=== PATIENT | female | born 2000 | race Caucasian/White ===

== ENCOUNTER 2020-04-09 10:46 | Emergency (ER) | payer SELFPAY ==
--- NOTE | 2020-04-09 10:56 | ED.FEMALEGU ---
HPI - Female Genitourinary General Chief complaint: Urogenital-Female Stated complaint: UTI Time Seen by Provider: 04/09/20 11:06 Source: patient and RN notes reviewed Mode of arrival: ambulatory Limitations: no limitations History of Present Illness HPI Narrative: This is a 19 years old female presents to the office for an evaluation of possible UTI. Onset 2 days ago with urinary frequency, urgency and blood tinged when she wiped. Denies history of UTI in the past. She is sexually active with one partner, denies concern for STD. No treatment prior to arrival. Denies chance of . Related Data Allergies Allergy/AdvReac Type Severity Reaction Status Date / Time No Known Allergies Allergy Unverified 03/18/14 21:45 Review of Systems Review of Systems: Narrative: CONSTITUTIONAL: Denies fever, chills. CARDIOVASCULAR: Denies chest pain, palpitation RESPIRATORY: Denies dyspnea, wheezing, cough GASTROINTESTINAL: Denies abdominal pain, nausea, vomiting GENITOURINARY: Denies vaginal discharge SKIN: Denies rash MUSCULOSKELETAL: Denies acute back pain NEUROLOGIC: Denies lightheaded All other systems reviewed are negative, except as documented in HPI. PMFSH Comments At time of signature, I agree with nursing past medical, surgical, social and family history. There is no relevant family history pertinent to the presenting complaint. Exam Narrative: Exam Narrative: GENERAL: This is a well-nourished, well-developed patient, in no apparent distress. CARDIOVASCULAR: Regular rate and rhythm without murmurs, gallops, or rubs. RESPIRATORY: Clear to auscultation. Breath sounds equal bilaterally. No wheezes, rales, or rhonchi. GASTROINTESTINAL: Abdomen soft, non-tender, nondistended. Bowel sounds are active. No hepato-splenomegaly, or palpable masses. No guarding. No CVA tenderness. SKIN: warm, intact with no suspicious lesions or rash, good texture and turgor. NEURO: awake, alert, and oriented to person, place and time. There were no obvious focal neurologic abnormalities. Steady gait Hawk Coma Scale Eye Opening: Spontaneous 4 Hawk Coma Scale Motor: Obeys Commands 6 Hawk Coma Scale Verbal: Oriented 5 Course Vital Signs Vital signs: Vital Signs Temperature 98.6 F 04/09/20 11:08 Pulse Rate 79 04/09/20 11:08 Respiratory Rate 16 04/09/20 11:08 Blood Pressure 120/72 04/09/20 11:08 Pulse Oximetry 96 04/09/20 11:08 Temperature 98.6 F 04/09/20 11:08 Pulse Rate 79 04/09/20 11:08 Respiratory Rate 16 04/09/20 11:08 Blood Pressure 120/72 04/09/20 11:08 Pulse Oximetry 96 04/09/20 11:08 MDM - Female Genitourinary MDM Narrative Medical decision making narrative: Discharge instructions reviewed with patient, as well as provided in writing per nursing staff. The instructions also include specific and strict return/GO TO THE ER as well as f/u information. All questions have been answered, and the patient deny any further questions with discharge and discharge plan. Differential Diagnosis Differential diagnosis: Likely urinary tract infection, cervicitis, vaginitis and cystitis Lab Data Attestation: I reviewed the patient's lab results. Labs: Urine Glucose Negative Reference Range: Negative Urine Bilirubin Negative Reference Range: Negative Urine Ketone Negative Reference Range: Negative Urine Specific Addison 1.020 Reference Range:1.001-1.035 Urine Blood 1+ Reference Range: Negative * * Urine pH 8.5 Reference Range: 5.0-9.0 Urine Protein 1+ Reference Range: Negative Urine Urobilinogen 0.2 Reference Range: 0.2-1.0 Urine Nitrate Negative Reference Range: Negative Urine Leukocyte
[2020-04-09 11:08] VITALS: BP 120/72; PULSE 79; RESP 16; TEMP 37; O2SAT 96
== END 2020-04-09 11:22 | disposition home or self-care (01) ==
PROVIDERS: Emergency Provider Nurse Practitioner
DX: R35.0 Frequency of micturition (principal); R39.15 Urgency of urination
CPT/HCPCS: 81003; 87077; 87086; 87088; 87186; 99213; G0463

== ENCOUNTER 2020-08-31 14:37 | Emergency (ER) | payer SELFPAY ==
[2020-08-31 14:50] VITALS: BP 122/58; PULSE 78; RESP 16; TEMP 36.7; O2SAT 99
--- NOTE | 2020-08-31 15:20 | ED.EAR ---
HPI - Ear Problem General Chief complaint: Ear Stated complaint: bump behind ear Source: patient and RN notes reviewed Mode of arrival: ambulatory Limitations: no limitations History of Present Illness HPI Narrative: This is a 20-year-old white female that presented to the ED today with complaints of left ear pain . 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 According to patient her parents told her that she had a tumor. 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 Patient notes that when she is sleeping night and lays on her left ear her pain increases. She also showed me pictures where the left ear was red with a swollen area behind that left ear. Today she does not have that but continues to complain of pain. She will be treated for otitis media. Patient denies any ear discharge, change in hearing , SOB, CP, palpitation, extremity numbness, lightheadedness, dizziness, constipation, diarrhea, chills, or fever. MD Complaint: ear pain Related Data Allergies Allergy/AdvReac Type Severity Reaction Status Date / Time No Known Allergies Allergy Unverified 08/31/20 14:40 Review of Systems Review of Systems: All systems reviewed & are unremarkable except as noted in HPI and below (10 point system review) Exam Narrative: Exam Narrative: GENERAL: This is a well-nourished, well-developed patient, in no apparent distress. HEAD: normocephalic, atraumatic. EYES: PERRL. Sclera clear/white. Vision is grossly intact. EARS: External ears normal, auditory canals with slight edema and erythema, TMs normal without perforation. Hearing grossly intact. NOSE: External nose normal with no obvious nasal discharge, nares without redness, no rhinorrhea. THROAT: Mucous membranes moist, posterior pharynx clear. NECK: Neck supple, non-tender without lymphadenopathy, masses or thyromegaly. CARDIOVASCULAR: Regular rate and rhythm without murmurs, gallops, or rubs. RESPIRATORY: Clear to auscultation. Breath sounds equal bilaterally. No wheezes, rales, or rhonchi. GASTROINTESTINAL: Abdomen soft, non-tender, nondistended. Bowel sounds are active. No hepato-splenomegaly, or palpable masses. No guarding. SKIN: warm, intact with no suspicious lesions or rash, good texture and turgor. NEURO: awake, alert, and oriented to person, place and time. There were no obvious focal neurologic abnormalities. Steady gait EXTREMITIES: Normal range of motion. No edema. No calf tenderness. Negative Homans sign bilaterally. BACK: Nontender without deformity or crepitance. No flank tenderness. Course Vital Signs Vital signs: Vital Signs Temperature 98.0 F 08/31/20 14:50 Pulse Rate 78 08/31/20 14:50 Respiratory Rate 16 08/31/20 14:50 Blood Pressure 122/58 L 08/31/20 14:50 Pulse Oximetry 99 08/31/20 14:50 Temperature 98.0 F 08/31/20 15:26 Pulse Rate 78 08/31/20 15:26 Respiratory Rate 16 08/31/20 15:26 Blood Pressure 122/58 L 08/31/20 15:26 Pulse Oximetry 99 08/31/20 15:26 Medical Decision Making Vital Signs Vital Signs: Vital Signs Temperature 98.0 F 08/31/20 14:50 Pulse Rate 78 08/31/20 14:50 Respiratory Rate 16 08/31/20 14:50 Blood Pressure 122/58 L 08/31/20 14:50 Pulse Oximetry 99 08/31/20 14:50 Temperature 98.0 F 08/31/20 15:26 Pulse Rate 78 08/31/20 15:26 Respiratory Rate 16 08/31/20 15:26 Blood Pressure 122/58 L 08/31/20 15:26 Pulse Oximetry 99 08/31/20 15:26 Discharge Plan Discharge Clinical Impression: Otitis media Qualifiers: Otitis media type: suppurative Chronicity: acute Laterality: left Recurrence: non-recurrent Spontaneous tympanic membrane rupture: without spontaneous rupture Qualified Code(s): H66.002 - Acute suppurative otitis media without spontaneous rupture of ear drum, left ear Patient Disposition: Home, Self-Care Condition: Stable Instructions: Antibiotic Form, Amoxicillin (By mouth), Ear Infection (ED) Additional Instructions:
[2020-08-31 15:26] VITALS: BP 122/58; PULSE 78; RESP 16; TEMP 36.7; O2SAT 99
== END 2020-08-31 15:21 | disposition home or self-care (01) ==
PROVIDERS: Emergency Provider Nurse Practitioner
DX: H66.002 Acute suppurative otitis media without spontaneous rupture of ear drum, left ear (principal)
CPT/HCPCS: 99213; G0463

== ENCOUNTER 2021-06-24 20:13 | Emergency (ER) | payer SELFPAY ==
--- NOTE | ~2021-06-24 | XR_ITS ---
EXAMINATION: XR foot LT min 3V DATE: 06/24/2021 20:36 INDICATION: Left foot pain TECHNIQUE: Dorsoplantar, lateral, and 2 oblique views of the left foot were obtained. COMPARISON: None. FINDINGS: There is no fracture, dislocation, or subluxation. The bones and joint spaces are normal. T here is plantar soft tissue swelling of the foot. No radiopaque foreign body is identified. IMPRESSION: 1. Plantar soft tissue swelling of the foot without radiopaque foreign body identified. Reviewed, dictated and finalized at location A. IMPRESSION: 1. Plantar soft tissue swelling of the foot without radiopaque foreign body rahul ntified.
[2021-06-24 20:19] VITALS: BP 133/74; PULSE 97; RESP 20; TEMP 36.6; O2SAT 100
--- NOTE | 2021-06-24 22:29 | ED.WOUNDLAC ---
HPI - Wound/Laceration General Chief Complaint: Wound/Laceration Stated Complaint: Stepped on glass, wound Time Seen by Provider: 06/24/21 22:24 Source: patient Mode of arrival: ambulatory Limitations: no limitations History of Present Illness HPI narrative: 20-year-old female with no significant past medical history immunizations up-to-date complaining of left plantar foot laceration. Patient was taking out the garbage the garbage bag dropped and there was a broken vase which she stepped on in her bare feet. Patient complaining of approximately 1 cm wound in the mid medial left plantar area swelling and tenderness to the wound. No active bleeding. Tetanus up-to-date. No other injury. Patient came planes of left foot pain constant worse with ambulation or movement proved with rest. Pain located on the left medial plantar area nonradiating Onset (ago): hour(s) Related Data Allergies Allergy/AdvReac Type Severity Reaction Status Date / Time No Known Allergies Allergy Unverified 08/31/20 14:40 Review of Systems Review of Systems: CONSTITUTIONAL: no fever, no weight loss, no confusion EYES: no vision changes, no eye pain ENT: no rhinorrhea, no sore throat, no difficulty swallowing CARDIOVASCULAR: no chest pain, no leg edema, no palpitations RESPIRATORY: no cough, no shortness of breath, no hemoptysis GASTROINTESTINAL: no abdominal pain, no nausea, no vomiting, no diarrhea GENITOURINARY: no flank pain, no dysuria, no hematuria SKIN: no rash, no jaundice, one cm laceration L plantar medial foot MUSCULOSKELETAL: no back pain, L foot pain NEUROLOGIC: No headache, no dizziness, no focal weakness PSYCHIATRIC: No hallucinations, no suicidal ideation Exam Narrative: General: alert, afebrile, answering all questions appropriately Head: normocephalic, atraumatic Eyes: EOMI bilaterally, anicteric, no injection ENT: moist mucous membranes, oropharynx patent, no rhinorrhea Neck: supple, trachea midline, no JVD Chest: equal chest rise bilaterally, no chest wall trauma noted EXT: no deformity noted, moving all extremities equally Skin: warm, dry, no pallor 1cm subcutaneous laceration to L medial plantar foot, no active bleeding Neuro: alert, oriented x 3; CN 2-12 grossly intact, no dysarthria Psych: affect appropriate, though content normal Course Vital Signs Vital signs: Vital Signs Temperature 36.6 C 06/24/21 20:19 Pulse Rate 97 06/24/21 20:19 Respiratory Rate 20 06/24/21 20:19 Blood Pressure 133/74 06/24/21 20:19 Pulse Oximetry 100 06/24/21 20:19 Temperature 36.6 C 06/24/21 20:19 Pulse Rate 90 06/24/21 23:38 Respiratory Rate 18 06/24/21 23:38 Blood Pressure 159/77 H 06/24/21 23:38 Pulse Oximetry 100 06/24/21 23:38 MDM - Wound/Laceration MDM Narrative Medical decision making narrative: 20-year-old female Tdap up-to-date stepped on a garbage bag containing glass objects including a glass vase which was broken. Patient stepped down in bare feet on the [place] suffered a laceration to the left medial dorsal foot prior to arrival. Foot x-ray shows no foreign bodies. On exam patient has 1 cm subcutaneous laceration with no active bleeding to the left dorsal foot. Patient does have some foot swelling and tenderness. No other discharge from the wound. Wound was irrigated with 50% Betadine 50% saline for 15 minutes. And rinsed off. Steri-Strips were applied and the foot was wrapped for comfort. Augmentin was given for swelling and possible infection. Patient will return immediately if fever, worsening pain at site, or signs of infection including drainage or redness. Differential Diagnosis Differential diagnosis: Likely laceration and other (retained foreign body) Medical Records Attestation: I reviewed the patient's medical records. Imaging Data My impression: Left foot x-ray: No foreign body, mild soft tissue swelling at site. No free air no pockets of air. Discharge Plan Discharge Clinical Impre
[2021-06-24] MEDS: IBUPROFEN 600 MG TABLET PO (23:21)
[2021-06-24 23:38] VITALS: BP 159/77; PULSE 90; RESP 18; O2SAT 100
== END 2021-06-24 23:40 | disposition home or self-care (01) ==
LOC: ANHED 23:19
PROVIDERS: Emergency Provider Emergency Medicine; PCP Physician Assistant
DX: S91.312A Laceration without foreign body, left foot, initial encounter (principal); W25.XXXA Contact with sharp glass, initial encounter
CPT/HCPCS: 73630; 99283; A9270

== ENCOUNTER 2021-08-05 09:39 | Emergency (ER) | payer SELFPAY ==
--- NOTE | ~2021-08-05 | XR_ITS ---
EXAMINATION: XR ankle RT min 3V INDICATION: Right ankle pain TECHNIQUE: Four views of the right ankle are obtained. COMPARISON: None available FINDINGS: Bone alignment is normal. There is no fracture. Heterotopic ossification distal to the late ral malleolus has the appearance of prior injury or accessory ossicle. There is mild lateral soft tis faustino swelling of ankle. IMPRESSION: 1. No acute osseous abnormality. Reviewed, dictated and finalized at location A. R TUBE INSERTER
--- NOTE | 2021-08-05 09:44 | ED.LOWEXIN ---
HPI - Extremity Injury (Lower) General Chief Complaint: Extremity Injury, Lower Stated Complaint: Right Foot Pain Time Seen by Provider: 08/05/21 09:44 Source: patient and RN notes reviewed History of Present Illness HPI Narrative: 21-year-old female presents to the [facility] with complaints of right ankle pain. Reports that she twisted it about a month ago. Reports pain to the medial posterior aspect. No bruising or signs of infection. Full range of motion. Capillary refill under 2 seconds distal to injury. Able to flex and dorsiflex against pressure without issue Related Data Home Medications Medication Instructions Recorded Confirmed No Home Medications 08/05/21 08/05/21 Allergies Allergy/AdvReac Type Severity Reaction Status Date / Time No Known Allergies Allergy Unverified 08/05/21 09:48 Review of Systems Review of Systems: All systems reviewed & are unremarkable except as noted in HPI and below Constitutional: Constitutional: Reports no additional constitutional complaints, Denies chills and Denies fever(s) Eyes: Eyes: Reports no additional eye complaints ENT: Reports system reviewed and no additional complaints, except as documented Cardiovascular: Cardiovascular: Reports no additional cardiovascular complaints Respiratory: Respiratory: Reports no additional respiratory complaints Gastrointestinal: Gastrointestinal: Reports no additional gastrointestinal complaints Musculoskeletal: Musculoskeletal: Reports as per HPI and Reports arthralgias (rt ankle) Integumentary/Breasts: Skin/Breast: Reports system reviewed and no additional complaints, except as docu Neurologic: Reports system reviewed and no additional complaints, except as documented Psychiatric: Psychiatric: Reports no additional psychiatric complaints Allergic/Immunologic: Allergic/Immunologic: Reports no additional allergic/immunologic complaints PMFSH Past Medical History Medical History (Updated 08/05/21 @ 16:01 by Janeth Lomax) Patient denies significant medical history Surgical History Surgical History (Updated 08/05/21 @ 16:01 by Janeth Lomax) No significant past surgical history Social History Social History (Updated 08/05/21 @ 16:01 by Janeth Lomax) Gender identity (if verbalized by the patient): Female Comments At the time of my signature, I reviewed and agree with the nursing past medical, surgical, social, and family history. There is no relevant family history pertinent to the patient complaint. Exam Const: General: healthy appearing, no acute distress and alert Nutritional Appearance: well nourished and obese Orientation/consciousness: patient oriented x3 Limitations: no limitations HENMT: Head: normal to inspection Eyes: Pupils: Equal, round and reactive pupils present Neck: Neck: normal visual inspection, no lymphadenopathy and no meningeal signs Chest: Chest palpation & inspection: normal inspection of the chest Resp: Effort & Inspection: normal respiratory effort Auscultation: clear to auscultation bilaterally Cardio: Rate: regular rate Rhythm: regular rhythm : General: Yes no CVA tenderness Back/Spine/Pelvis: Back: no CVA tenderness Skin: General skin exam: normal color Rashes: no rashes Wounds: no wounds Neuro: General: patient oriented x3, moves all extremities, no meningeal signs and no focal motor deficits Speech: normal speech Gait exam (Neuro): Normal gait present Extrem: General: normal to inspection Right lower extremity: foot Details: normal capillary refill Ankle/foot/toe images: 1. tender to palpation and with walking. No swelling bruising or signs of infection noted. Full range of motion. Positive pedal pulse. Sensation intact in all 5 toes. Psych: Appearance: grossly normal and well kempt Mental Status: mental status grossly normal Affect: normal affect Attitude: cooperative Thought content: Yes Normal thought content present Course
[2021-08-05 09:47] VITALS: BP 109/73; PULSE 75; RESP 16; TEMP 36.9; O2SAT 100
[2021-08-05 09:49] VITALS: BP 109/73; PULSE 75; RESP 16; TEMP 36.9; O2SAT 100
== END 2021-08-05 10:14 | disposition home or self-care (01) ==
PROVIDERS: Emergency Provider Nurse Practitioner; PCP Physician Assistant
DX: S93.401A Sprain of unspecified ligament of right ankle, initial encounter (principal); S96.911A Strain of unspecified muscle and tendon at ankle and foot level, right foot, initial encounter; X50.9XXA Other and unspecified overexertion or strenuous movements or postures, initial encounter
CPT/HCPCS: 73610; 99213; G0463

== ENCOUNTER 2021-09-21 06:07 | Emergency (ER) | payer SELFPAY ==
--- NOTE | ~2021-09-21 | XR_ITS ---
EXAMINATION: XR chest 1V portable DATE: 09/21/2021 07:28 INDICATION: Left back pain. Cough. TECHNIQUE: A single frontal view of the chest was obtained. COMPARISON: None. FINDINGS: The chest demonstrates clear lungs without pneumonia, pleural effusion, or pneumothorax. Th e heart size is normal. IMPRESSION: 1. No acute cardiopulmonary disease. Reviewed, dictated and finalized at location A. IRING MACHINE OPERATOR
--- NOTE | ~2021-09-21 | CT_ITS ---
EXAMINATION: CT abdomen pelvis w con DATE: 09/21/2021 08:07 INDICATION: Left abdominal pain. Left back pain. TECHNIQUE: Computed tomography (CT) of the abdomen and pelvis was performed with 100 mL Omnipaque 350 intravenous contrast. Automated exposure control and iterative reconstruction technique were employe d. The dose-length product was 1533.14 mGy-cm. COMPARISON: None. FINDINGS: The visualized portions of the lung bases demonstrate minimal atelectasis. A calcified righ t lung nodule and calcified paraesophageal lymph node are consistent with old granulomatous disease. No pleural effusion. The heart size is normal. No pericardial effusion. The liver, gallbladder, splee n, pancreas, adrenal glands, and kidneys are normal. There are no dilated loops of bowel. The appendi x is normal. There are no pathologically enlarged lymph nodes. There is no free intraperitoneal fluid . The spine is unremarkable. IMPRESSION: 1. No etiology for the patient's symptoms. Reviewed, dictated and finalized at location A. ID GEAR TESTER
[2021-09-21 06:15] VITALS: BP 127/83; PULSE 87; RESP 18; TEMP 36.7; O2SAT 100
--- NOTE | 2021-09-21 07:19 | ED.BACK ---
HPI - Back Pain/Injury General Chief Complaint: Back Pain/Injury Stated Complaint: lower back pain, migraine, covid+ 08/28 Time Seen by Provider: 09/21/21 07:02 Source: RN notes reviewed History of Present Illness HPI Narrative: Patient presents emergency room from home for low back pain. Patient states that she had low back pain for the past 3 weeks. Pain is located in the left lower back and does not radiate. States is described as aching. States that she has had pain since she had Covid which she was diagnosed with on August 28. She denies any fevers or chills chest pain shortness of breath abdominal pain nausea vomiting states she does have a cough that is nonproductive. States she not taking pain medication today. Patient states she did have a headache on but has had no headaches since then Related Data Allergies Allergy/AdvReac Type Severity Reaction Status Date / Time No Known Allergies Allergy Unverified 08/05/21 09:48 Review of Systems Review of Systems: Gen.: Denies fevers or chills Eyes: Denies eye pain or visual change ENT: Denies congestion Respiratory: Denies shortness of breath reports cough CV: Denies chest pain or palpitations GI: Denies abdominal pain nausea, emesis or diarrhea denies burning, urgency, frequency or hematuria Musculoskeletal: See HPI Neuro: Denies numbness, tingling, weakness or focal weakness Skin: Denies rash Except as documented, all other systems reviewed and negative [facility] Past Medical History Medical History (Updated 09/21/21 @ 08:23 by Kristofer Dia DO) COVID-19 Patient denies significant medical history Surgical History Surgical History (Updated 08/05/21 @ 16:01 by Janeth Lomax) No significant past surgical history Social History Social History (Updated 09/21/21 @ 07:20 by Kristofer Dia DO) Smoking status: Never smoker Gender identity (if verbalized by the patient): Female Exam Narrative: APPEARANCE: No acute distress, nontoxic, resting in bed EYES: EOMI HEENT: Normocephalic, atraumatic, TMs clear bilaterally RESPIRATORY: No respiratory distress Clear to auscultation bilaterally with no rhonchi wheezing or rales. CARDIOVASCULAR: Regular rate and rhythm without murmurs rubs or gallops. ABDOMINAL: Soft, nondistended tender palpation left lower quadrant no tenderness left upper quadrant, right upper quadrant lower quadrant no rebound or guarding Back: No midline thoracic lumbar tenderness palpation, tender palpation of the left paravertebral muscles L3-5 MUSCULOSKELETAl: Moves all extremities. No clubbing, cyanosis or edema. NEURO: Awake and alert. Following commands, speech normal, no focal deficits SKIN:: Warm, dry. No rashes lesions or abrasions PSYCHIATRIC: Normal affect/mood, Course Course Emergency Course: Patient states she is feeling better at this time Patient states that they are feeling much better at this time. States abdominal pain has resolved. Repeat abdominal exam shows the patient's abdomen to be soft and nontender. Discussed with patient results of workup and diagnosis. Discussed need for follow-up with primary care physician, reasons to return to the emergency department in proper use of medication. Patient understands and agrees to current treatment plan Vital Signs Vital signs: Vital Signs Temperature 98.0 F 09/21/21 06:15 Pulse Rate 87 09/21/21 06:15 Respiratory Rate 18 09/21/21 06:15 Blood Pressure 127/83 09/21/21 06:15 Pulse Oximetry 100 09/21/21 06:15 Temperature 98.0 F 09/21/21 06:15 Pulse Rate 87 09/21/21 06:15 Respiratory Rate 18 09/21/21 06:15 Blood Pressure 127/83 09/21/21 06:15 Pulse Oximetry 100 09/21/21 06:15 MDM - Back Pain/Injury MDM Narrative Medical decision making narrative: Patient?s pain is positional and localized to back without signs of cord compression or cauda equina. Normal nuerologic exams. No fever noted and no significant risk factors for osteo
[2021-09-21 07:39] LABS: Add Urine Microscopic? NO; Appearance Urine Clear (Clear); Bilirubin Urine Negative (Negative); Blood Urine Negative (Negative); Color Urine Yellow (Yellow); Glucose Urine UA Negative (Negative); Ketones Urine Negative (Negative); Leukocyte Esterase Ur Negative LEU/UL (Negative); Nitrate Urine Negative (Negative); Protein Urine Negative (Negative); Specific Grav Ur 1.018 (1.001-1.035); Urobilinogen Urine Negative mg/dL (<2.0)
[2021-09-21] MEDS: KETOROLAC 30 MG/ML VIAL (*BKC) IV PUSH (07:39)
[2021-09-21] MEDS: SODIUM CHLORIDE 0.9% IV 1,000 ML 999 ML IV CONT (07:39)
[2021-09-21 07:44] LABS: Basophils Percent Auto 0.4 % (0.2-1.2); Eosinophils Absolute Auto 0.2 K/mm3 (0-0.3); Eosinophils Percent Auto 1.7 % (0-4.4); Hematocrit 42.5 % (37.0-47.0); Hemoglobin 13.8 g/dL (12.0-15.0); Lymphocytes Percent Auto 31.4 % (18.3-44.2); Mean Corpuscular HGB Conc 32.5 g/dl (32-36); Mean Corpuscular Hemoglobin 28.2 pg (26-34); Mean Corpuscular Volume 86.7 fl (80-100); Mean Platelet Volume 9.1 fl (7.4-10.4); Monocytes Absolute Auto 0.9 K/mm3 (0.1-0.6); Monocytes Percent Auto 9.2 % (2.6-8.5); Neutrophils Absolute Auto 5.4 K/mm3 (1.3-6.7); Neutrophils Percent Auto 56.3 % (45.5-73.1); Platelet Count Result 275 k/mm3 (150-375); Red Cell Distribution Width 13.3 % (11.5-14.5); White Blood Count 9.6 K/mm3 (4.5-10.0)
--- NOTE | 2021-09-21 07:48 | PC.NURSE ---
20g iv placed in right ac x1 attempt. well tolerated. labs drawn. Patient receives normal saline and toradol.
[2021-09-21 07:53] LABS: Alanine Aminotransferase 22 U/L (4-35); Albumin Level 4.3 g/dL (3.5-5.1); Alkaline Phosphatase 94 U/L (38-126); Anion Gap 9 mmol/L (8-16); Aspartate Amino Transferase 28 U/L (14-36); Bilirubin,Total 0.3 mg/dL (0.2-1.3); Blood Urea Nitrogen 15 mg/dL (7-17); Calcium 9.1 mg/dL (8.4-10.2); Carbon Dioxide 25 mmol/L (22-30); Chloride 103 mmol/L (98-107); Estimated CRCL calculation 123 ml/min; Estimated Glomerular Filt Rate > 60; Glucose 119 mg/dL (65-110); Lipase 106 U/L (23-300); Potassium 3.7 mmol/L (3.4-5.0); Sodium 137 mmol/L (137-145)
[2021-09-21 08:35] VITALS: BP 135/75; PULSE 75; RESP 18; TEMP 36.4; O2SAT 99
== END 2021-09-21 08:35 | disposition home or self-care (01) ==
PROVIDERS: Emergency Provider Emergency Medicine; PCP Physician Assistant
DX: M54.50 Low back pain, unspecified (principal)
CPT/HCPCS: 36415; 71045; 74177; 80053; 81003; 81025; 83690; 85025; 96361; 96374; 99284; J1885; J7030; Q9967

== ENCOUNTER 2021-10-22 11:45 | Emergency (ER) | payer SELFPAY ==
[2021-10-22 11:53] VITALS: BP 145/91; PULSE 105; RESP 16; TEMP 36.8; O2SAT 99
--- NOTE | 2021-10-22 11:55 | ED.NAVMDI ---
HPI - Nausea/Vomiting/Diarrhea General Chief complaint: Nausea/Vomiting/Diarrhea Stated complaint: Throwing Up Time Seen by Provider: 10/22/21 11:55 Source: patient, RN notes reviewed and old records reviewed Mode of arrival: ambulatory Limitations: no limitations History of Present Illness HPI Narrative: 21-year-old female presents to the [facility] with complaints of 4 days of nausea. Yesterday and today states that she got dizzy, vomited and then felt better. Has to her test which she states is all negative. Denies abdominal pain, chest pain, shortness of breath. No other symptoms. Denies fever. MD elicited complaint: nausea and vomiting Related Data Allergies Allergy/AdvReac Type Severity Reaction Status Date / Time No Known Allergies Allergy Verified 10/22/21 12:10 Review of Systems Review of Systems: All systems reviewed & are unremarkable except as noted in HPI and below Constitutional: Constitutional: Reports no additional constitutional complaints, Denies chills and Denies fever(s) Eyes: Eyes: Reports no additional eye complaints ENT: Reports system reviewed and no additional complaints, except as documented Cardiovascular: Cardiovascular: Reports no additional cardiovascular complaints, Denies chest pain and Denies dyspnea Respiratory: Respiratory: Reports no additional respiratory complaints, Denies cough, Denies dyspnea and Denies wheezing Gastrointestinal: Gastrointestinal: Reports no additional gastrointestinal complaints, Denies abdominal pain, Denies constipation, Denies diarrhea, Reports nausea and Reports vomiting Genitourinary: Genitourinary: Reports no additional female genitourinary complaints, Denies hematuria, Denies nocturia, Denies dysuria and Denies urinary incontinence Musculoskeletal: Musculoskeletal: Reports no additional musculoskeletal complaints Integumentary/Breasts: Skin/Breast: Reports system reviewed and no additional complaints, except as docu Neurologic: Reports as per HPI, Denies confusion, Denies vertigo, Reports dizziness, Denies syncope, Denies focal weakness, Denies numbness and Denies weakness Psychiatric: Psychiatric: Reports no additional psychiatric complaints Allergic/Immunologic: Allergic/Immunologic: Reports no additional allergic/immunologic complaints and Denies wheezing PMFSH Past Medical History Medical History COVID-19 Patient denies significant medical history Surgical History Surgical History No significant past surgical history Social History Social History Smoking status: Never smoker Gender identity (if verbalized by the patient): Female Comments At the time of my signature, I reviewed and agree with the nursing past medical, surgical, social, and family history. There is no relevant family history pertinent to the patient complaint. Exam Const: General: healthy appearing, no acute distress and alert Nutritional Appearance: well nourished and obese Orientation/consciousness: patient oriented x3 Limitations: no limitations HENMT: Head: normal to inspection Ears: external ears normal, TM's normal bilaterally and EAC's normal Eyes: Pupils: Equal, round and reactive pupils present Neck: Neck: normal visual inspection, no lymphadenopathy and no meningeal signs Chest: Chest palpation & inspection: normal inspection of the chest Resp: Effort & Inspection: normal respiratory effort and no use of accessory muscles Auscultation: clear to auscultation bilaterally, no crackles, no rales, no rhonchi and no wheezes Cardio: Rate: regular rate Rhythm: regular rhythm GI: GI Palp: Yes Soft to palpation and No Tenderness to palpation present (GI) : General: Yes no CVA tenderness Back/Spine/Pelvis: Back: no CVA tenderness Skin: General skin exam: normal color Rashes: no rashes Wounds: no w
[2021-10-22 12:10] VITALS: BP 145/91; PULSE 105; RESP 16; TEMP 36.8; O2SAT 99
== END 2021-10-22 12:25 | disposition home or self-care (01) ==
PROVIDERS: Emergency Provider Nurse Practitioner; PCP Physician Assistant
DX: N39.0 Urinary tract infection, site not specified (principal); Z86.16 Personal history of COVID-19
CPT/HCPCS: 81003; 81025; 87086; 87088; 99213; G0463

== ENCOUNTER 2023-11-11 15:12 | Emergency (ER) | payer BC, SELFPAY ==
[2023-11-11 15:33] VITALS: BP 135/71; PULSE 85; RESP 16; TEMP 37.8; O2SAT 99
--- NOTE | 2023-11-11 15:51 | ED.GENADULT ---
HPI - General Adult General Chief complaint: Upper Respiratory Infection Stated complaint: fever,throat sore Time Seen by Provider: 11/11/23 15:50 History of Present Illness HPI narrative: For, and hoarseness for 3 days. Patient also states she had migraine last Friday. Patient denies allergies, denies past medical history, denies prescription medications. Patient reports that she has attempted to treat her symptoms with DayQuil and at without much relief. Patient states that she has taken 2 COVID tests at home that were both negative. Patient denies dizziness, nvd. Related Data Home Medications Medication Instructions Recorded Confirmed ibuprofen 800 mg PO TID 11/11/23 11/11/23 omeprazole 40 mg capsule,delayed 40 mg PO DAILY 11/11/23 11/11/23 release Allergies Allergy/AdvReac Type Severity Reaction Status Date / Time No Known Allergies Allergy Verified 11/11/23 15:18 Review of Systems Constitutional: Constitutional: Reports as per HPI, Denies body ache(s), Denies chills, Denies excessive sweating, Reports fever(s) and Reports headache(s) Eyes: Eyes: Reports as per HPI and Reports no additional eye complaints ENT: Reports as per HPI, Reports Normal hearing present, Reports change in voice, Reports hoarseness, Reports nasal congestion, Reports post nasal drip and Reports sore throat Cardiovascular: Cardiovascular: Reports as per HPI, Reports no additional cardiovascular complaints, Denies chest pain and Denies dyspnea Respiratory: Respiratory: Reports as per HPI, Reports cough and Denies pain with cough Gastrointestinal: Gastrointestinal: Reports as per HPI and Reports no additional gastrointestinal complaints Musculoskeletal: Musculoskeletal: Reports no additional musculoskeletal complaints Neurologic: Reports system reviewed and no additional complaints, except as documented, Reports as per HPI, Denies dizziness and Reports headache(s) [facility] Past Medical History Medical History COVID-19 Patient denies significant medical history Surgical History Surgical History No significant past surgical history Social History Social History Smoking status: Never smoker Gender identity (if verbalized by the patient): Female Exam Const: General: cooperative, healthy appearing, no acute distress, well developed, alert, awake, uncomfortable and well groomed Orientation/consciousness: patient oriented x3 Limitations: no limitations HENMT: Head: normal to inspection Ears: hearing grossly normal bilaterally, external ears normal and TM's normal bilaterally Face/Nose/Sinus: Normal external nose present and Nasal discharge present clear Mouth: Yes Normal oral and palatal mucosa present, Yes tongue normal and Yes moist mucous membranes Teeth and gingiva: dentition normal and gingiva normal Throat: tonsils normal, uvula midline, postnasal drainage and no uvular edema Eyes: General: appearance normal, both eyes and all related structures Neck: Neck: full ROM, no meningeal signs, lymphadenopathy, tender and no JVD Chest: Chest palpation & inspection: normal inspection of the chest Resp: Effort & Inspection: normal respiratory effort, able to speak in complete sentences, no audible wheezes, Actively coughing and no respiratory distress Auscultation: clear to auscultation bilaterally, no crackles, no rhonchi and no wheezes Cardio: Jugular venous distension: no JVD Rate: regular rate Rhythm: regular rhythm Skin: General skin exam: normal color, no rashes or lesions noted and turgor normal Neuro: General: patient oriented x3 Extrem: General: full ROM Psych: Appearance: grossly normal and well kempt Course Course Level of Care: Express Care Visit Vital Signs Vital signs: Vital Signs Temperature 37.8 C H 11/11/23 15:33 Pulse Rate 85
== END 2023-11-11 16:10 | disposition home or self-care (01) ==
PROVIDERS: Nurse Practitioner; Emergency Provider Nurse Practitioner Family
DX: J10.1 Influenza due to other identified influenza virus with other respiratory manifestations (principal); Z20.822 Contact with and (suspected) exposure to COVID-19; Z86.16 Personal history of COVID-19
CPT/HCPCS: 87081; 87426; 87804; 87880; 99213; G0463

== ENCOUNTER 2024-02-11 14:06 | Emergency (ER) | payer BC, SELFPAY ==
--- NOTE | ~2024-02-11 | XR_ITS ---
Right Hand Technique: PA, oblique, and lateral views were obtained. Clinical History: Pain Findings: No acute fracture or dislocation is seen. Osseous alignment is anatomic. Joint spaces are p reserved. Soft tissues are unremarkable. Impression: Unremarkable right hand. Reviewed, dictated and finalized at location M. Impression: Unremarkable right hand.
[2024-02-11 14:14] VITALS: BP 102/79; PULSE 93; RESP 16; TEMP 37.2; O2SAT 99
--- NOTE | 2024-02-11 14:33 | ED.EXTPRO ---
HPI - Extremity Problem General Chief complaint: Extremity Problem,Nontraumatic Stated complaint: Right Hand Fingers Pain Source: patient Mode of arrival: ambulatory Limitations: no limitations History of Present Illness HPI Narrative: 23-year-old female presented for complaint of right index finger pain after injury 3 days ago. She states while playing with boyfriend she hyperextended the fingers and heard a pop. She has been taking Tylenol and ibuprofen. Denies deformity or bruising. States swelling and pain are mild. 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 Related Data Home Medications Medication Instructions Recorded Confirmed No Home Medications 02/11/24 02/11/24 Allergies Allergy/AdvReac Type Severity Reaction Status Date / Time No Known Allergies Allergy Verified 02/11/24 14:21 Review of Systems Review of Systems: CONSTITUTIONAL: Denies body aches, fever, chills CARDIOVASCULAR: Denies chest pain, palpitations, or edema. RESPIRATORY: Denies cough or dyspnea. GASTROINTESTINAL: Denies abdominal pain, nausea, vomiting, or diarrhea. SKIN: Denies rash, itching, or wounds. MUSCULOSKELETAL: Reports right index pain Denies back pain, joint pain, or myalgia. NEUROLOGIC: Denies headache, numbness, tingling, or weakness. All systems reviewed & are unremarkable except as noted in HPI and below PMFSH Past Medical History Medical History COVID-19 Patient denies significant medical history Surgical History Surgical History No significant past surgical history Social History Social History Smoking status: Never smoker Gender identity (if verbalized by the patient): Female Comments At time of signature, I have reviewed and agree with nursing past medical, surgical, social and family history unless otherwise noted. Please see nursing chart for further information. There is no relevant family history pertinent to the presenting complaint Exam Narrative: GENERAL: Well-appearing CHEST: Speaks in full sentences. No respiratory distress. HEART: Regular rate and rhythm. Normal and equal peripheral pulses. EXTREMITIES: Right hand and digits of hand have normal strength and sensation. 5/5 strength slight decrease with digit flexion, tolerates full extension. No clubbing, cyanosis, or edema noted. No tenderness. Skin intact. Normal digital cascade with flexion of fingers, median, ulnar and radial nerve intact. Normal sensation of each side of finger. Can perform 'okay' sign, 'cross over finger test of index and middle fingers' and 'thumbs up' sign. No scissoring. Normal thumb opposition. Good capillary refill and radial pulse. Distal capillary refill less than 3 seconds. SKIN: Warm, dry, no rash. NEURO: Alert and oriented x3. PSYCH: Normal mood and affect Course Course Emergency Course: Patient is aware of diagnosis, understands and agrees to treatment plan. Anticipatory guidance given. Patient agrees to follow-up as directed and is aware of reasons to seek care at the emergency department. Portions of this record may have been created with voice recognition software Level of Care: Express Care Visit Vital Signs Vital signs: Vital Signs Temperature 98.9 F 02/11/24 14:14 Pulse Rate 93 02/11/24 14:14 Respiratory Rate 16 02/11/24 14:14 Blood Pressure 102/79 02/11/24 14:14 Pulse Oximetry 99 02/11/24 14:14 Oxygen Delivery Room Air 02/11/24 14:14 Temperature 98.9 F 02/11/24 14:14 Pulse Rate 93 02/11/24 14:14 Respiratory Rate 16 02/11/24 14:14 Blood Pressure 102/79 02/11/24 14:14 Pulse Oximetry 99 02/11/24 14:14 Oxygen Delivery Room Air 02/11/24 14:14 Reviewed MDM - Extremity (Nontraumatic) MDM Narrative Medical decision making narrative: results of x-ray
== END 2024-02-11 14:45 | disposition home or self-care (01) ==
PROVIDERS: Emergency Provider Nurse Practitioner Family
DX: S63.610A Unspecified sprain of right index finger, initial encounter (principal); X50.9XXA Other and unspecified overexertion or strenuous movements or postures, initial encounter; Z86.16 Personal history of COVID-19
CPT/HCPCS: 73130; 99213; G0463

== ENCOUNTER 2024-04-02 17:48 | Emergency (ER) | payer BC, SELFPAY ==
--- NOTE | ~2024-04-02 | XR_ITS ---
EXAMINATION: XR ankle RT min 3V DATE: 04/02/2024 18:25 INDICATION: Right ankle injury. TECHNIQUE: 4 views of right ankle were obtained. COMPARISON: Right ankle radiographs 08/05/2021 FINDINGS: Bone alignment is normal. No acute fracture. There is chronic heterotopic ossification dist al to lateral malleolus. Joint spaces are normal. There is ankle soft tissue swelling. IMPRESSION: 1. No acute fracture. Reviewed, dictated and finalized at location E. IMPRESSION: 1. No acute fracture.
--- NOTE | 2024-04-02 17:51 | ED.LOWEXIN ---
HPI - Extremity Injury (Lower) General Chief Complaint: Extremity Injury, Lower Stated Complaint: right ankle injury Time Seen by Provider: 04/02/24 17:51 Source: patient Mode of arrival: ambulatory Limitations: no limitations History of Present Illness HPI Narrative: Spencer is a 23-year-old female patient presenting to the clinic today with complaints of a right ankle injury/pain that occurred on Friday. She reports she rolled her right ankle and having a lateral ankle pain. Is having swelling and pain with ambulation. Related Data Home Medications Medication Instructions Recorded Confirmed No Home Medications 02/11/24 04/02/24 Allergies Allergy/AdvReac Type Severity Reaction Status Date / Time No Known Allergies Allergy Verified 04/02/24 18:03 Review of Systems Review of Systems: Pertinent positives per HPI. Patient denies any fever, chills, rash, headache, visual changes, dizziness, cough, runny nose, sore throat, shortness of breath, chest pain, palpitations, nausea, vomiting, diarrhea, constipation, abdominal pain, or any urinary issues. PMFSH Past Medical History Medical History COVID-19 Patient denies significant medical history Surgical History Surgical History No significant past surgical history Social History Social History Smoking status: Never smoker Gender identity (if verbalized by the patient): Female Comments At the time of my signature, I reviewed and agree with the nursing past medical, surgical, social, and family history. There is no relevant family history pertinent to the patient complaint. Exam Narrative: General: Well-developed, well nourished, in no apparent distress Head: Normocephalic, atraumatic. Cardio: Regular rate and rhythm, s1 and s2 normal, no murmur appreciated. Resp: Clear to auscultation bilaterally, no rhonchi, rales, wheezing or rubs. Musculoskeletal: No deformity, tender to palpation of the right lateral ankle with localized soft tissue swelling, pain with flexion and extension of the right lateral ankle against resistance, pain with valgus and varus testing, grossly normal range of motion, muscle strength strong and equal, peripheral pulse strong, no edema, no cyanosis, normal gait and station Course Course Emergency Course: Portions of this record may have been created with voice recognition software. Level of Care: Express Care Visit Vital Signs Vital signs: Vital Signs Temperature 37.0 C 04/02/24 18:05 Pulse Rate 80 04/02/24 18:05 Respiratory Rate 14 04/02/24 18:05 Blood Pressure 126/71 04/02/24 18:05 Pulse Oximetry 100 04/02/24 18:05 Temperature 37.0 C 04/02/24 18:05 Pulse Rate 80 04/02/24 18:05 Respiratory Rate 14 04/02/24 18:05 Blood Pressure 126/71 04/02/24 18:05 Pulse Oximetry 100 04/02/24 18:05 Vital signs reviewed MDM - Extremity Injury (Lower) MDM Narrative Medical decision making narrative: At the time of visit patient is resting comfortably on the exam table. Patient appears to be nontoxic. Diagnostics: X-ray of the right ankle was performed and was negative for any sign of fracture or malalignment. Plan: I suspect patient has a right lateral ankle sprain. Supportive measures were discussed with the patient and they voiced understanding discharge instructions and agrees to treatment plan. Return precautions reviewed Differential Diagnosis Differential diagnosis: Likely ankle sprain and strain and ankle fracture Imaging Data Radiologist's impression: ITS Impressions Ankle X-Ray 04/02/24 18:27 IMPRESSION: 1. No acute fracture. Discharge Plan Discharge Clinical Impression: Ankle sprain Qualifiers: Encounter type: initial encounter Involved ligament of ankle: calcaneofibular
[2024-04-02 18:05] VITALS: BP 126/71; PULSE 80; RESP 14; TEMP 37; O2SAT 100
== END 2024-04-02 18:50 | disposition home or self-care (01) ==
PROVIDERS: Emergency Provider Nurse Practitioner Family
DX: S93.401A Sprain of unspecified ligament of right ankle, initial encounter (principal); X50.9XXA Other and unspecified overexertion or strenuous movements or postures, initial encounter; Z86.16 Personal history of COVID-19
CPT/HCPCS: 73610; 99213; G0463

== ENCOUNTER 2025-05-17 13:38 | Emergency (ER) | payer MEDICAID, SELFPAY ==
[2025-05-17 13:42] VITALS: BP 146/84; PULSE 93; RESP 16; TEMP 36.6; O2SAT 100
--- NOTE | 2025-05-17 14:02 | ED_ITS ---
HPI - URI/Sore Throat General Chief Complaint: Upper Respiratory Infection Stated Complaint: Fever Time Seen by Provider: 05/17/25 14:03 Source: patient, RN notes reviewed and old records reviewed Mode of arrival: ambulatory Limitations: no limitations History of Present Illness HPI Narrative: 24-year-old female presents to the [facility] with 3 to failure day history of nasal congestion, nasal drainage, dry cough, body aches, sore throat. Reports that at the beginning she had a fever as high as 102. Patient also reports she has had headache. Feels like it has been a migraine for 10 days. Has taken Excedrin. Patient also reports that she is taking Tylenol. Patient with no formal diagnosis of migraines states that she has a family history of mom. Denies any blurry vision, change in vision. No neck pain. Related Data Home Medications ?Medication ?Instructions ?Recorded ?Confirmed ?Last Taken ?Type No Home Medications 02/11/24 05/17/25 U nknown History Allergies Allergy/AdvReac Type Severity Reaction Status Date / Time No Known Allergies Allergy Verified 05/17/25 13:39 Review of Systems Review of Systems: All systems reviewed & are unremarkable except as noted in HPI and below Constitutional: Constitutional: Reports as per HPI ENT: Reports as per HPI Cardiovascular: Cardiovascular: Reports no additional cardiovascular complaints, Denies chest pain and Denies dyspnea Respiratory: Respiratory: Reports no additional respiratory complaints, Denies chest congestion, Denies cough and Denies dyspnea Musculoskeletal: Musculoskeletal: Reports no additional musculoskeletal complaints Integumentary/Breasts: Skin/Breast: Reports system reviewed and no additional complaints, except as docu PMFSH Past Medical History Medical History COVID-19 Patient denies significant medical history Surgical History Surgical History No significant past surgical history Social History Social History Smoking status: Never smoker Gender identity (if verbalized by the patient): Female Comments At the time of my signature, I reviewed and agree with the nursing past medical, surgical, social, and family history. There is no relevant family history pertinent to the patient complaint. Exam Const: General: cooperative, healthy appearing, comfortable, no acute distress, well developed, alert and well nourished Nutritional Appearance: well nourished Orientation/consciousness: patient oriented x3 Limitations: no limitations HENMT: Head: normal to inspection Eyes: General: appearance normal, both eyes and all related structures A lignment and Position: alignment normal Neck: Neck: normal visual inspection, full ROM, no lymphadenopathy and no meningeal signs Chest: Chest palpation & inspection: normal inspection of the chest Resp: Effort & Inspection: normal respiratory effort and able to speak in complete sentences Auscultation: clear to auscultation bilaterally, no crackles, no rales, no rhonchi and no wheezes Cardio: Rate: regular rate Skin: General skin exam: normal color and no rashes or lesions noted Neuro: General: patient oriented x3, gait normal, moves all extremities and no meningeal signs Cognition (Neuro): normal cognition Speech: normal speech Gait exam (Neuro): Normal gait present Extrem: General: normal to inspection, full ROM, capillary refill normal and normal gait Psych: Appearance: grossly normal and well kempt Mental Status: mental status grossly normal Speech and movement: Normal speech and movement present and Clear speech present Affect: normal affect Attitude: cooperative Course Course Level of Care: Express Care Visit Vital Signs Vital signs: Vital Signs Temperature 97.8 F 05/17/25 13:42 Pulse Rate 93 05/17/25 13:42 Respiratory Rate 16 05/17/25 13:42 Blood Pressure 146/84 H 05/17/25 13:42 Pulse Oximetry 100 05/17/25 13:42 Oxygen Delivery Room Air 05/17/25 13:42 Temperature 97.8 F 05/17/25 13:42 Pulse Rate 93 05/17/25 13:42 Respiratory Rate 16 05/17/25 13:42 Blood Pressure 146/84 H 05/17/25 13:42 Pulse Oximetry 100 05/17/25 13:42 Oxygen Delivery Room Air 05/17/25 13:42 Reviewed MDM - URI/Sore Throat MDM Narrative Medical decision making narrative: Patient sitting in exam room. Patient is nontoxic, vitals stable. Patient presents with 3-4 day history of URI symptoms. Flu, COVID, strep were negative. Patient also reports a headache, Toradol offered, patient declined. Discussed [id number] treatment plan which patient verbalized understanding. Discharge instructions reviewed with patient, as well as provided in writing per nursing staff. The instructions also include specific and strict return/GO TO THE ER as well as f/u information. All questions have been answered, and the patient deny any further questions with discharge and discharge plan. Some parts of this dictation were generated by voice recognition software and may contain typographical and/or grammatical inaccuracies. Differential Diagnosis Differential diagnosis: Likely upper respiratory infection, otitis media, sinusitis, viral infection, bronchitis, influenza and pharyngitis Lab Data Labs: Lab Results 05/17/25 Range/Units 13:45 POC Influenza A Ag Negative (Negative) POC Influenza B Ag Negative (Negative) POC SARS CoV-2 Ag Negative (Negative) POC Grp A Strep Screen Negative (Negative) Reviewed Critical Care Time Critical Care Time Critical Care Time: No Discharge Plan Discharge Clinical Impression: Upper respiratory infection Qualifiers: URI type: unspecified viral URI Qualified Code(s): J06.9 - Acute upper respiratory infection, unspecified Headache Qualifiers: Headache type: unspecified Patient Disposition: Home Condition: Stable Instructions: Upper Respiratory Infection (DC), Acute Headache (DC) Additional Instructions: Your rapid strep swab was negative today at [facility]. A throat culture will be sent to the laboratory for further testing. If the test is positive, you will receive a phone call within 48 hours and an appropriate antibiotic will be initiated at that time. Your rapid COVID test were negative Your rapid flu test was negative Your symptoms are likely due to a viral illness, which is not treated with antibiotics. Typically viral infections last 7-10 days, can linger for couple of weeks. It is very important to treat your symptoms. Drink plenty of water, Gatorade, Pedialyte, ice pops or Jell-O. -Alternate Tylenol and Motrin per package directions for fever or pain. You can alternate every 4 hours -Antihistamine medication such as Zyrtec/Claritin/Lori during the day can help improve symptoms. -doing daily nasal irrigations can help relieve pressure your sinuses. Things like a Neti pot -Use Flonase twice a day for 5 days then daily to help reduce the inflammation and dry up your sinuses. -You can also use Mucinex. Be sure to drink plenty of water with this medication at least 8 ounces with every dose and it is important to drink 8 to 10 glasses of water per day. Water is a natural decongestant -Eat and drink things that are easy to swallow, like tea or soup, or popsicles. -Oral rinses such as: Salt water gargles and/or may use topical anesthetic (eg. Chloraseptic spray) or lozenges to relieve dryness or throat pain). -Frequent hand washing or hand in store marketing associate is one of the best ways to prevent sp read of infection. -Using a vaporizer or humidifier at night will also help thin secretions and help with coughing up phlegm. -Follow up with primary care provider in 7-10 days if condition is not improving - For new or worsening symptoms go directly to the nearest ER Patient Language: [place] Island[place] Prescriptions: No Action No Home Medications Follow-up/Referrals: PHYSICIAN,ORGANIC PREPARATION TECHNICIAN [Primary Care Provider, Internal Medicine] Stand Alone Forms: Work/School Release IP Time of Disposition: 14:20
[2025-05-17 14:08] LABS: EDCOVIDSCREEN Negative (Negative); EDINFLUASCREEN Negative (Negative); EDINFLUBSCREEN Negative (Negative); EDSTREPNEGPOS1 Negative (Negative)
== END 2025-05-17 14:25 | disposition home or self-care (01) ==
PROVIDERS: Emergency Provider Nurse Practitioner
DX: J06.9 Acute upper respiratory infection, unspecified (principal); Z20.822 Contact with and (suspected) exposure to COVID-19
CPT/HCPCS: 87081; 87426; 87804; 87880; 99213; G0463

== ENCOUNTER 2025-09-10 10:19 | Emergency (ER) | payer MEDICAID, SELFPAY ==
[2025-09-10 10:28] VITALS: BP 126/70; PULSE 103; RESP 20; TEMP 36.9; O2SAT 97
[2025-09-10 10:44] LABS: EDSTREPNEGPOS1 Negative (Negative)
[2025-09-10 10:45] LABS: EDCOVIDSCREEN Negative (Negative)
[2025-09-10 10:45] LABS: EDINFLUASCREEN Positive (Negative); EDINFLUBSCREEN Negative (Negative)
--- NOTE | 2025-09-10 10:46 | ED_ITS ---
HPI - URI/Sore Throat General Chief Complaint: Upper Respiratory Infection Stated Complaint: Sinus [facility] with complaints of cough, nasal congestion, fever, chills, body aches, headache, ear pain, sore throat that began yesterday. noted have has some sick contacts with a respiratory flu. NyQuil taken off night with some relief of symptoms. denies shortness of breath, abdominal pain, nausea, vomiting, diarrhea, dizziness, or difficulty swallowing Related Data Allergies Allergy/AdvReac Type Severity Reaction Status Date / Time No Known Allergies Allergy Verified 09/10/25 10:20 Review of Systems Constitutional: Constitutional: Reports as per HPI, Reports chills, Reports fatigue, Reports fever(s) and Denies weakness Eyes: Eyes: Reports no additional eye complaints ENT: Reports as per HPI, Denies vertigo, Denies dizziness, Reports nasal congestion and Reports sore throat Cardiovascular: Cardiovascular: Reports no additional cardiovascular complaints Respiratory: Respiratory: Reports as per HPI, Reports chest congestion, Reports cough, Denies dyspnea and Denies wheezing Gastrointestinal: Gastrointestinal: Reports no additional gastrointestinal complaints Genitourinary: Genitourinary: Reports no additional female genitourinary com plaints Musculoskeletal: Musculoskeletal: Reports as per HPI, Denies back pain and Reports myalgias Integumentary/Breasts: Skin/Breast: Reports as per HPI, Denies erythema and Denies rash Neurologic: Reports as per HPI, Denies vertigo, Denies dizziness, Reports headache(s) and Denies weakness Psychiatric: Psychiatric: Reports no additional psychiatric complaints Endocrine: Endocrine: Reports no additional endocrine complaints Hematologic/Lymphatic: Hematologic/Lymphatic: Reports no additional he matologic/lymphatic complaints Allergic/Immunologic: Allergic/Immunologic: Reports no additional allergic/immunologic complaints PMFSH Past Medical History Medical History COVID-19 Patient denies significant medical history Surgical History Surgical History No significant past surgical history Social History Social History Smoking status: Never smoker Gender identity (if verbalized by the patient): Female Exam Const: General: healthy appearing and no acute distress Nutritional Appearance: well nourished Orientation/consciousness: patient oriented x3 Limitations: no limitations HENMT: Head: normal to inspection Ears: external ears normal and TM's abnormal bilaterally ( mild bulging, clear fluid noted no erythema) Face/Nose/Sinus: Normal external nose present, Normal nares present and Nasal discharge present Face and sinus: normal facial exam and sinuses nontender Mouth: Yes Normal oral and palatal mucosa present, Yes lip normal and Yes moist mucous membranes Throat: posterior oropharynx abnormal ( moderate erythema with edema, no exudate ) Neck: Neck: normal visual inspection and no lymphadenopathy Resp: Effort & Inspection: normal respiratory effort Auscultation: clear to auscultation bilaterally Other: dry cough noted Cardio: Rate: regular rate Rhythm: regular rhythm Skin: General skin exam: normal color Rashes: no rashes Wounds: no wounds Neuro: General: patient oriented x3 Speech: normal speech Gait exam (Neuro): Normal gait present Psych: Mental Status: mental status grossly normal Affect: normal affect Attitude: cooperative Course Course Level of Care: Express Care Visit Vital Signs Vital signs: Vital Signs Temperature 98.5 F 09/10/25 10:28 Pulse Rate 103 H 09/10/25 10:28 Respiratory Rate 20 09/10/25 10:28 Blood Pressure 126/70 09/10/25 10:28 Pulse Oximetry 97 09/10/25 10:28 Oxygen Delivery Room Air 09/10/25 10:28 Temperature 98.5 F 09/10/25 10:28 Pulse Rate 103 H 09/10/25 10:28 Respiratory Rate 20 09/10/25 10:28 Blood Pressure 126/70 09/10/25 10:28 Pulse Oximetry 97 09/10/25 10:28 Oxygen Delivery Room Air 09/10/25 10:28 [facility] MDM Narrative Medical decision making narrative: Positive influenza a, negative strep and COVID, will send strep culture The patient was evaluated by myself in the express care. History is obtained from patient who is an independent historian and physical exam was performed. Available medical records were reviewed at this time. Exam findings show no acute concerns or changes; patient is non-toxic appearing and is in no distress. Patient is appropriate for outpatient treatment and follow-up. I have evaluated and discussed social determinants of health with the patient that could potentially impact subsequent diagnosis and treatment plans. Differential diagnosis and treatment plan were discussed with the patient. Patient agrees with discussion and after shared medical decision making agrees with plan of care. All questions were answered to the patient's satisfaction. Differential Diagnosis Differential Diagnosis: sinusitis, influenza, strep, pharyngitis, tonsillitis, upper respiratory infection Medical Records I have reviewed the following patient records and this information was taken into consideration when formulating the assessment and plan.: previous labs, previous ER visits, previous hospitalizations and previous clinic visits Lab Data MDM Lab Attestation statement: I personally reviewed the patient's lab results. Labs: Lab Results 09/10/25 09/10/25 09/10/25 Range/Units 10:30 10:43 10:44 POC Influenza A Ag Positive (Negative) POC Influenza B Ag Negative (Negative) POC SARS CoV-2 Ag Negative (Negative) POC Grp A Strep Screen Negative (Negative) Discharge Plan Discharge Clinical Impression: Influenza A Patient Disposition: Home Condition: Stable Instructions: Antibiotic Form, Influenza (ED) Additional Instructions: You are positive for influenza A Take the Tamiflu medication as directed for the next 5 days. This is not a cure- this can help you feel better faster and take 1 day off of your symptoms. antibiotic is NOT recommended at this time. Recommend antihistamine such as Benadryl at night time and Claritin/Zyrtec/Lori during the day. Also using steroid nasal spray like Flonase can help with symptoms and congestion. Using sudafed for significant congestion will also give some relief. Cough syrup may cause drowsiness; avoid driving or take it at night time. Use inhaler as needed for cough, wheezing, shortness of breath or chest tightness. Also, recommend symptomatic treatment includes: rest, fluids, increase humidity of the air at home. Recommend Acetaminophen or nonsteroidal anti-inflammatory agents(NSAIDs) as directed in the bottle to reduce fever and/pain/headache. Avoid smoking/second-hand smoke. Limit visits to areas with large crowds. Frequent hand washing or hand supervisor concrete [employer]ating is one of the best ways to prevent spread of infection. Please schedule a followup visit with your personal physician for further evaluation and treatment within 3-5days. Including recheck and discussion of your blood pressure. If your symptoms persist, change or worsen significantly before you can contact your personal physician then please, without delay, go to the emergency department for further evaluation. Patient Language: [place] Prescriptions: New oseltamivir [Tamiflu] 75 mg capsule 75 mg PO Q12H 5 Days Qty: 10 0RF Follow-up/Referrals: PHYSICIAN NOT ON STAFF,NONSTAFF [Primary Care Provider] Time of Disposition: 10:49
== END 2025-09-10 10:55 | disposition home or self-care (01) ==
PROVIDERS: Emergency Provider Nurse Practitioner Family
DX: J10.1 Influenza due to other identified influenza virus with other respiratory manifestations (principal); Z20.822 Contact with and (suspected) exposure to COVID-19; Z86.16 Personal history of COVID-19
CPT/HCPCS: 87081; 87426; 87804; 87880; 99213; G0463